=== PATIENT | female | born 1950 | race Caucasian/White ===

== ENCOUNTER 2019-08-17 08:43 | Outpatient (CLI) | payer MEDICARE, OTHER, SELFPAY ==
[2019-08-17 09:09] LABS: Hematocrit 42.1 % (37.0-47.0); Hemoglobin 13.8 g/dL (12.0-15.0); Mean Corpuscular HGB Conc 32.8 g/dl (32-36); Mean Corpuscular Hemoglobin 29.6 pg (26-34); Mean Corpuscular Volume 90.1 fl (80-100); Mean Platelet Volume 10.2 fl (7.4-10.4); Platelet Count Result 217 k/mm3 (150-375); Red Blood Count 4.67 M/mm3 (4.2-5.4); Red Cell Distribution Width 13.8 % (11.5-14.5); White Blood Count 5.7 K/mm3 (4.5-10.0)
[2019-08-17 09:17] LABS: Hemoglobin A1C 6.4 % (<5.7)
[2019-08-17 09:26] LABS: Alanine Aminotransferase 19 U/L (4-35); Albumin Level 4.5 g/dL (3.5-5.1); Alkaline Phosphatase 69 U/L (38-126); Aspartate Amino Transferase 27 U/L (14-36); Bilirubin,Total 0.4 mg/dL (0.2-1.3); Blood Urea Nitrogen 16 mg/dL (7-17); Calcium 9.1 mg/dL (8.4-10.2); Carbon Dioxide 30 mmol/L (22-30); Chloride 102 mmol/L (98-107); Estimated Glomerular Filt Rate > 60; Glucose 122 mg/dL (65-105); Sodium 139 mmol/L (137-145)
[2019-08-17 09:45] LABS: Creatinine Urine 46.4 mg/dL
[2019-08-17 09:57] LABS: MALB Creatinine Ratio < 12.9 mg/g (0-30); Microalbumin Urine Random < 6.0 mg/L (0-16.7)
== END 2019-08-17 08:44 | disposition home or self-care (01) ==
LOC: ANHLAB 08:47
PROVIDERS: PCP Internal Medicine; Visit Provider Internal Medicine
DX: E11.9 Type 2 diabetes mellitus without complications (principal); I10 Essential (primary) hypertension
CPT/HCPCS: 36415; 80053; 82043; 83036; 85027

== ENCOUNTER 2020-07-02 08:47 | Outpatient (CLI) | payer MEDICARE, OTHER, SELFPAY ==
--- NOTE | ~2020-07-02 | DEXA_ITS ---
Bone Density Report Name: Wendi Song Age: 70 Sex: Female Ethnicity: White Date of : 1950 Indication: postmenopausal; prior fracture; hysterectomy; Referring Provider: CHERYL SANDERS Study: Bone densitometry was performed. Exam Date: July 02, 2020 Accession number: [id number] Bone Density: Region BMD T-score Z-score Classification AP Spine (L1, L3) 1.368 3.2 5.3 Normal Femoral Neck (Left) 0.812 -0.3 1.5 Normal Total Hip (Left) 1.013 0.6 2.1 Normal Total Hip Bilateral Avg 1.022 0.7 2.1 Normal Femoral Neck (Right) 0.953 0.9 2.8 Normal Total Hip (Right) 1.030 0.7 2.2 Normal World Health Organization criteria for BMD impression classify patients as: Normal (T-score at or above -1.0), Osteopenia (T-score between -1.0 and -2.5), or Osteoporosis (T-score at or below -2.5). 10-year Fracture Risk: FRAX not reported because: All T-scores for Spine Total, Hip Total, Femoral Neck at or above -1.0 Previous Exams: Region Exam Age BMD T-score BMD Change BMD Change Date g/cm2 vs Baseline vs Previous AP Spine(L1, L3) 07/02/2020 70 1.368 3.2 0.094(7.4%)* 0.032(2.4%)* 05/05/2018 68 1.336 2.9 0.062(4.9%)* 0.062(4.9%)* 12/04/2015 65 1.274 2.4 Total Hip(Left) 07/02/2020 70 1.013 0.6 -0.012(-1.2%) -0.018(-1.7%) 05/05/2018 68 1.030 0.7 0.005(0.5%) 0.005(0.5%) 12/04/2015 65 1.025 0.7 Total Hip(Right) 07/02/2020 70 1.030 0.7 -0.033(-3.1%)* -0.083(-7.5%)* 05/05/2018 68 1.113 1.4 0.051(4.8%)* 0.051(4.8%)* 12/04/2015 65 1.062 1.0 *Denotes significance at 95% confidence level, LSC for AP Spine = 0.022 g/cm2, LSC for Total Hip = 0.027 g/cm2 Clinical Information Provided by Patient: Has had a low trauma fracture Has used the following medications: Vitamin D, Calcium Has the following medical conditions: Hysterectomy Patient maximum height was 65 Menopause Age: 50 Drinks caffeinated beverages Onset of menses at age 11 Number of children 3 Impression: The patient has normal bone mass. The patient has risk factors, including: previous fracture. The BMD for the Total Hip(Right) decreased, changing by -7.5% since the last DXA exam. Discussion: BONE DENSITY IS ABOVE THE MINIMUM DESIRABLE LEVEL AT ALL SKELETAL SITES TESTED. This patient?s bone mineral density is above the minimum desirable level (T-score -1.0 or better) at all sites measured. The patient should follow a healthful lifestyle (good nutri
--- NOTE | ~2020-07-02 | MM_ITS ---
EXAMINATION: MM screening hermelinda BI w jono HISTORY: Screening TECHNIQUE: Craniocaudal and mediolateral oblique 3-D tomosynthesis images were obtained and synthetic 2-D images were generated. CAD analysis was submitted and interpreted. COMPARISON: No prior mammogram is available for comparison at this institution. BREAST PARENCHYMAL COMPOSITION: There are scattered areas of fibroglandular density. FINDINGS: There is no evidence of suspicious mass, calcification, or architectural distortion to sugg est malignancy in either breast. There has been no suspicious interval change. IMPRESSION: 1. No mammographic evidence of malignancy. 2. Recommend routine screening mammography in one year. BI-RADS Category 1: Negative Reviewed, dictated and finalized at location A.
== END 2020-07-02 08:48 | disposition home or self-care (01) ==
LOC: ANHIMG 08:49
PROVIDERS: PCP Internal Medicine; Visit Provider Internal Medicine
DX: Z12.31 Encounter for screening mammogram for malignant neoplasm of breast (principal); Z78.0 Asymptomatic menopausal state
CPT/HCPCS: 77063; 77067; 77080

== ENCOUNTER 2021-07-22 09:57 | Outpatient (CLI) | payer MEDICARE, OTHER, SELFPAY ==
--- NOTE | ~2021-07-22 | MM_ITS ---
EXAMINATION: MM screening hermelinda BI w jono HISTORY: Screening mammogram TECHNIQUE: Craniocaudal and mediolateral oblique 3-D tomosynthesis images were obtained and synthetic 2-D images were generated. CAD analysis was submitted and interpreted. COMPARISON: 07/02/2020 bilateral screening mammogram in right colon [id number] year is for one year and h e is additional BREAST PARENCHYMAL COMPOSITION: There are scattered areas of fibroglandular density. FINDINGS: Stable circumscribed benign-appearing intramammary lymph node outer mid right breast. There is no evidence of suspicious mass, calcification, or architectural distortion to suggest malignancy in either breast. There has been no suspicious interval change. IMPRESSION: 1. No mammographic evidence of malignancy. 2. Recommend routine screening mammography in one year. BI-RADS Category 2: Benign finding(s). Reviewed, dictated and finalized at location A.
== END 2021-07-22 09:58 | disposition home or self-care (01) ==
LOC: ANHIMG 10:02
PROVIDERS: PCP Internal Medicine; Visit Provider Internal Medicine
DX: Z12.31 Encounter for screening mammogram for malignant neoplasm of breast (principal)
CPT/HCPCS: 77063; 77067

== ENCOUNTER 2022-02-16 09:26 | Outpatient (CLI) | payer MEDICARE, OTHER, SELFPAY ==
--- NOTE | ~2022-02-16 | US_ITS ---
Limited Abdominal Sonogram: Real-time sonographic imaging of the right upper quadrant was performed. Clinical History: Gallbladder disease Findings: The liver appears echogenic, with no evidence of mass lesion or bile duct dilatation. Main portal vein demonstrates normal direction of flow. The gallbladder is well distended, and appears no rmal with no evidence of gallstone or wall thickening. The common bile duct measures 7 mm. The visua lized pancreas, aorta, and IVC are unremarkable. Impression: Diffuse fatty infiltration of the liver. Reviewed, dictated and finalized at location M. [employer] PUBL[employer] Impression: Diffuse fatty infiltration of the liver.
== END 2022-02-16 09:27 | disposition home or self-care (01) ==
PROVIDERS: PCP Internal Medicine; Visit Provider Internal Medicine
DX: R10.13 Epigastric pain (principal); K76.0 Fatty (change of) liver, not elsewhere classified
CPT/HCPCS: 76705

== ENCOUNTER 2022-04-23 01:47 | Day surgery (SDC) | payer MEDICARE, OTHER, SELFPAY ==
[2022-04-09 11:03] VITALS: BMI 31.6
[2022-04-23 06:28] VITALS: BP 151/67; PULSE 58; RESP 20; TEMP 36.4; O2SAT 97; BMI 31.6
[2022-04-23 06:37] LABS: Glucose Point of Care 114 mg/dl (65-105)
[2022-04-23] MEDS: LACTATED RINGERS 1,000 ML 150 ML IV CONT (06:37)
--- NOTE | 2022-04-23 07:27 | PM.HPGS ---
History of Present Illness History of Present Illness Consent: Risks, benefits, and alternatives have been discussed and questions answered. Patient agrees to proceed with procedure. Chief complaint: GERD, A-typical chest pain Narrative: Wendi Song is a 72 year old female Presents for EGD. Patient has a history of esophageal web dilated several years ago. At that time placed on omeprazole 20mg p.o. daily. She states recently began to belch more frequently. She denies any dysphagia. Patient denies any heartburn. The dose of omeprazole was increased to b.i.d. but the belching persisted. Upon starting Gas-X this seems to have subsided. Symptoms also improved after brief vacation. Patient has very vague atypical symptoms in her chest not related to eating he she requests an EGD because of history of web in the past. Review of Systems Review of Systems: Review of systems noncontributory. [facility] Past Medical History Medical History (Updated 04/23/22 @ 07:29 by Teodoro Hutchison MD) Arthritis Chronic diarrhea Diabetes mellitus Family hx colonic polyps Gastroesophageal reflux disease History of vaginal delivery x 3 Hyperlipidemia Hypertension Hypovitaminosis D Type 2 diabetes mellitus without complication, without long-term current use of insulin Surgical History Surgical History History of hysterectomy Previous back surgery [place] teeth removed Family History Family History Sibling Family history of mental disorder Family history of alcoholism Family history of attention deficit hyperactivity disorder (ADHD) Father Hypertension Family history of cardiovascular disease, Onset Age: 85 Family history of malignant neoplasm, Onset Age: 85 Family history of hearing loss Carcinoma of colon Family history of heart disease in male family member before age 55 Mother Family history of cardiovascular disease Family history of arthritis, Onset Age: 85 Family history of heart disease in male family member before age 55 Social History Social History Smoking status: Never smoker Second hand tobacco smoke exposure: Yes Alcohol intake: current Drinks per week: 2 Substance use: never Substance use type: does not use Lack of Transportation: No Lack of Food: Never True Current Housing: I Have Housing Concerned About Future Housing: No Difficulty Paying Gas/Electric Bills: No Difficulty Paying for Meds: No Currently Unemployed: No Education: Master's Degree or Higher Difficulty w/ Childcare or Family Care: No Living arrangements: alone Meds Home Medications and Allergies Home Medications Medication Instructions Recorded Confirmed Type calcium carbonate 500 mg calcium 500 mg PO DAILY 08/17/19 04/09/22 History (1,250 mg) tablet cholecalciferol (vitamin D3) 125 125 mcg PO DAILY 08/17/19 04/09/22 History mcg (5,000 unit) capsule loratadine 10 mg tablet (Claritin) 10 mg PO DAILY 08/17/19 04/09/22 History metformin 500 mg tablet 500 mg PO BID #360 tabs 01/26/22 04/09/22 Rx omeprazole 20 mg capsule,delayed 40 mg PO DAILY #180 caps 01/26/22 04/09/22 Rx release rosuvastatin 20 mg tablet See Rx Instructions .Route 01/26/22 04/09/22 Rx .COMPLEX #90 tabs amlodipine 10 mg tablet See Rx Instructions .Route 03/19/22 04/09/22 Rx .COMPLEX #90 tabs losartan 25 mg tablet See Rx Instructions .Route 03/22/22 04/09/22 Rx .COMPLEX #90 tabs Allergies Allergy/AdvReac Type Severity Reaction Status Date / Time codeine Allergy Unknown Vomiting Verified 04/23/22 06:23 Vital Signs Vital Signs - 24 hr 04/23/22 06:28 Temperature 97.6 F Pulse Rate 58 L Respiratory Rate 20 Blood Pressure 151/67 H Pulse Oximetry 97 Oxygen Delivery Room Air Exam Narrative: Physical exam reveals patient to
[2022-04-23 07:42] VITALS: BP 116/55; PULSE 45; RESP 14; O2SAT 99
--- NOTE | 2022-04-23 07:42 | WPDANESEPPF ---
Anes - Initial Pre Proc Eval Procedure: Operation Date: 04/23/22 07:30 Proposed Procedures p Esophagogastroduodenoscopy - Teodoro Hutchison MD Date/Time: 04/23/22 07:42 Surgeon: Teodoro Hutchison MD Pre Op Diagnosis: GERD, A-typical chest pain Patient Data Age: 72 Gender: F Height: 1.65 m Weight: 86.2 kg Last Vital Signs Temp 97.6 F 04/23/22 06:28 Pulse 58 L 04/23/22 06:28 Resp 20 04/23/22 06:28 BP 151/67 H 04/23/22 06:28 Pulse Ox 97 04/23/22 06:28 O2 Del Method Room Air 04/23/22 06:28 Allergies Allergy/AdvReac Type Severity Reaction Status Date / Time codeine Allergy Unknown Vomiting Verified 04/23/22 06:23 Home Medications Medication Instructions Recorded Confirmed Type calcium carbonate 500 mg calcium 500 mg PO DAILY 08/17/19 04/09/22 History (1,250 mg) tablet cholecalciferol (vitamin D3) 125 125 mcg PO DAILY 08/17/19 04/09/22 History mcg (5,000 unit) capsule loratadine 10 mg tablet (Claritin) 10 mg PO DAILY 08/17/19 04/09/22 History metformin 500 mg tablet 500 mg PO BID #360 tabs 01/26/22 04/09/22 Rx omeprazole 20 mg capsule,delayed 40 mg PO DAILY #180 caps 01/26/22 04/09/22 Rx release rosuvastatin 20 mg tablet See Rx Instructions .Route 01/26/22 04/09/22 Rx .COMPLEX #90 tabs amlodipine 10 mg tablet See Rx Instructions .Route 03/19/22 04/09/22 Rx .COMPLEX #90 tabs losartan 25 mg tablet See Rx Instructions .Route 03/22/22 04/09/22 Rx .COMPLEX #90 tabs Laboratory Tests 04/23/22 06:34 POC Capillary Glucose 114 mg/dl H mg/dl (65-105) Patient hx anesthesia problems: none Family hx anesthesia problems: none Results Review: All pre-operative results and documents have been reviewed as part of the pre-operative evaluation. [facility] Past Medical History Medical History (Updated 04/23/22 @ 07:29 by Teodoro Hutchison MD) Arthritis Chronic diarrhea Diabetes mellitus Family hx colonic polyps Gastroesophageal reflux disease History of vaginal delivery x 3 Hyperlipidemia Hypertension Hypovitaminosis D Type 2 diabetes mellitus without complication, without long-term current use of insulin Surgical History Surgical History History of hysterectomy Previous back surgery [place] teeth removed Family History Family History Sibling Family history of mental disorder Family history of alcoholism Family history of attention deficit hyperactivity disorder (ADHD) Father Hypertension Family history of cardiovascular disease, Onset Age: 85 Family history of malignant neoplasm, Onset Age: 85 Family history of hearing loss Carcinoma of colon Family history of heart disease in male family member before age 55 Mother Family history of cardiovascular disease Family history of arthritis, Onset Age: 85 Family history of heart disease in male family member before age 55 Social History Social History Smoking status: Never smoker Second hand tobacco smoke exposure: Yes Alcohol intake: current Drinks per week: 2 Substance use: never Substance use type: does not use Lack of Transportation: No Lack of Food: Never True Current Housing: I Have Housing Concerned About Future Housing: No Difficulty Paying Gas/Electric Bills: No Difficulty Paying for Meds: No Currently Unemployed: No Education: Master's Degree or Higher Difficulty w/ Childcare or Family Care: No Living arrangements: alone Anes - Eval Final PreProcedure Day of Procedure 04/23/22 07:42 Patient weight: normal Heart: regular rate and rhythm Lungs: clear to auscultation Airway: Mallampati scale class II Neurological: alert and oriented Last oral intake: >/= 8 hours ASA classification: III Emergent: no Anesthetic plan: proceed Anesthesia type and monitoring: general GIVS an
[2022-04-23 07:52] VITALS: BP 118/64; PULSE 44; RESP 17; O2SAT 99
[2022-04-23 08:02] VITALS: BP 125/72; PULSE 48; RESP 17; O2SAT 99
== END 2022-04-23 08:16 | disposition home or self-care (01) ==
PROVIDERS: PCP Internal Medicine; Visit Provider Internal Medicine Gastroenterology
PROC: 0DJ08ZZ Inspection of Upper Intestinal Tract, Via Natural or Artificial Opening Endoscopic (ICD-10-PCS; CPT 43235; principal; 2022-04-23 07:30)
DX: K21.9 Gastro-esophageal reflux disease without esophagitis (principal); E11.9 Type 2 diabetes mellitus without complications; I10 Essential (primary) hypertension; E55.9 Vitamin D deficiency, unspecified; E78.5 Hyperlipidemia, unspecified
CPT/HCPCS: 43239; 82948; 87081; J2704; J7120

== ENCOUNTER 2023-07-28 23:56 | Emergency (ER) | payer MEDICARE, OTHER, SELFPAY ==
--- NOTE | ~2023-07-28 | CT_ITS ---
CT of the Abdomen and Pelvis: Indication: Abdominal pain, rectal bleeding Technique: 2.5 mm axial scans were obtained through the abdomen and pelvis following intravenous adm inistration of 100 cc of Omnipaque 350. Dose reduction technique was used on this scan by utilizing a utomated exposure control and iterative reconstruction technique. The dose-length product (DLP) was 7 34.77 mGy-cm. Findings: Scans through the lung bases are unremarkable. The liver, spleen, pancreas, gallbladder, adrenals and left kidney are within normal limits. 1 cm rig ht renal mass is of mildly increased density as compared to the expected simple cyst, possibly a smal l solid lesion. No evidence of aortic aneurysm. No lymphadenopathy. No bowel obstruction. Possible wall thickening of the descending colon versus underdistention. No abs cess or free air. Images through the pelvis were performed. Urinary bladder unremarkable. Status post hysterectomy. No pelvic mass seen. No ascites. Impression: Possible wall thickening of the descending colon versus underdistention. Correlate for infectious/inf lammatory colitis. 1 cm possible solid lesion versus mildly complex/hyperdense cyst in the right kidney. Follow-up nonem ergent pre and postcontrast CT or MR should be considered to better evaluate for small solid renal le cecy. Reviewed, dictated and finalized at location . Impression: Possible wall thickening of the descending colon versus underdistention. Correl ate for infectious/inflammatory colitis. 1 cm possible solid lesion versus mildly complex/hyperdense cyst in the right k idney. Follow-up nonemergent pre and postcontrast CT or MR should be considered to better evaluate for small solid renal lesion.
[2023-07-29 00:08] VITALS: BP 148/86; PULSE 75; RESP 16; O2SAT 100
--- NOTE | 2023-07-29 00:58 | ED.GENADULT ---
HPI - General Adult General Chief complaint: GI Bleed <YOEL Otero Last Filed: 07/29/23 03:40> Stated complaint: rectal bleeding <YOEL Otero Last Filed: 07/29/23 03:40> Time Seen by Provider: 07/29/23 00:48 <YOEL Otero Last Filed: 07/29/23 03:40> Source: patient <YOEL Otero Last Filed: 07/29/23 03:40> Mode of arrival: ambulatory <YOEL Otero Last Filed: 07/29/23 03:40> Limitations: no limitations <YOEL Otero Last Filed: 07/29/23 03:40> History of Present Illness HPI narrative: This is a 73-year-old female with PMH of T2 dm, GERD, HLD, chronic diarrhea who presents to the ED for chief complaint of bright red blood per rectum that started around 16 30 this afternoon. Patient reports that she had the urge to use the toilet but when she tried to pass a bowel movement there was only bright red blood in the toilet bowl. No history of hemorrhoids so to speak. She has never had bleeding like this before. She endorses some abdominal cramping prior to the bowel movements. She did have 1 bowel movement today that turned into diarrhea. Denies nausea, vomiting, fevers, chills, urinary symptoms. Denies melena or dark tarry stools <YOEL Otero Last Filed: 07/29/23 03:40> Related Data Home medications: Home Medications Medication Instructions Recorded Confirmed calcium carbonate 500 mg PO DAILY 08/17/19 05/24/23 cholecalciferol (vitamin D3) 125 125 mcg PO DAILY 08/17/19 05/24/23 mcg (5,000 unit) capsule loratadine 10 mg tablet (Claritin) 10 mg PO DAILY 08/17/19 05/24/23 <YOEL Otero Last Filed: 07/29/23 03:40> Allergies/adverse reactions: Allergies Allergy/AdvReac Type Severity Reaction Status Date / Time codeine Allergy Unknown Vomiting Verified 05/24/23 08:27 <Sean Cook PA-C - Last Filed: 07/29/23 03:40> Review of Systems Review of Systems: All systems as dictated in HPI <Sean Cook PA-C - Last Filed: 07/29/23 03:40> [facility] Past Medical History Medical History: Medical History Arthritis Chronic diarrhea Diabetes mellitus Family hx colonic polyps Gastroesophageal reflux disease History of vaginal delivery x 3 Hyperlipidemia Hypertension Hypovitaminosis D Type 2 diabetes mellitus without complication, without long-term current use of insulin <YOEL Otero Last Filed: 07/29/23 03:40> Surgical History Surgical History: Surgical History History of hysterectomy Previous back surgery [place] teeth removed <Sean Cook PA-C - Last Filed: 07/29/23 03:40> Family History Family History: Family History Sibling Family history of mental disorder Family history of alcoholism Family history of attention deficit hyperactivity disorder (ADHD) Father Hypertension Family history of cardiovascular disease, Onset Age: 85 Family history of malignant neoplasm, Onset Age: 85 Family history of hearing loss Carcinoma of colon Family history of heart disease in male family member before age 55 Mother Family history of cardiovascular disease Family history of arthritis, Onset Age: 85 Family history of heart disease in male family member before age 55 <Sean Cook PA-C - Last Filed: 07/29/23 03:40> Social History Social History: Social History Smoking status: Never smoker Second hand tobacco smoke exposure: Yes Alcohol intake: current Drinks per week: 3 Substance use: never Substance use type: does not use Lack of Transportation: No Lack of Food: Never True Current Housing: I Have Housing Concerned About Future Housing: No Difficulty Paying Gas/Electric Bills: No Difficulty Paying for Meds:
[2023-07-29 01:13] LABS: Basophils Absolute Auto 0.1 K/mm3 (0.0-0.1); Basophils Percent Auto 0.5 % (0.2-1.2); Eosinophils Absolute Auto 0.1 K/mm3 (0-0.3); Eosinophils Percent Auto 1.2 % (0-4.4); Hematocrit 45.1 % (37.0-47.0); Hemoglobin 14.6 g/dL (12.0-15.0); Immature Granulocyte Absolute 0.04 K/mm3 (0.00-0.031); Immature Granulocyte Percent A 0.4 % (0-0.5); Lymphocytes Absolute Auto 1.58 K/mm3 (0.9-3.2); Lymphocytes Percent Auto 14.2 % (18.3-44.2); Mean Corpuscular HGB Conc 32.4 g/dl (32-36); Mean Corpuscular Hemoglobin 29.4 pg (26-34); Mean Corpuscular Volume 90.9 fl (80-100); Mean Platelet Volume 9.8 fl (7.4-10.4); Monocytes Absolute Auto 0.7 K/mm3 (0.1-0.6); Monocytes Percent Auto 6.6 % (2.6-8.5); Neutrophils Absolute Auto 8.6 K/mm3 (1.3-6.7); Neutrophils Percent Auto 77.1 % (45.5-73.1); Platelet Count Result 265 k/mm3 (150-375); Red Blood Count 4.96 M/mm3 (4.2-5.4); White Blood Count 11.1 K/mm3 (4.5-10.0)
[2023-07-29 01:26] LABS: INR 0.9; Partial Thromboplastin Time 29.4 Seconds (22.3-36.8)
[2023-07-29 01:29] LABS: Alanine Aminotransferase 22 U/L (6-35); Albumin Level 5.1 g/dL (3.5-5.1); Alkaline Phosphatase 85 U/L (38-126); Anion Gap 8 mmol/L (4-12); Aspartate Amino Transferase 28 U/L (14-36); Bilirubin,Total 0.5 mg/dL (0.2-1.3); Blood Urea Nitrogen 20 mg/dL (7-17); Calcium 9.9 mg/dL (8.4-10.2); Carbon Dioxide 30 mmol/L (22-30); Chloride 102 mmol/L (98-107); Estimated CRCL calculation 52 ml/min; Estimated Glomerular Filt Rate > 60; Glucose 143 mg/dL (65-110); Lactic Acid Reflex 0.8 mmol/L (0.7-2.0); Lipase 64 U/L (23-300); Potassium 3.8 mmol/L (3.4-5.0); Sodium 140 mmol/L (137-145)
[2023-07-29 04:31] VITALS: BP 140/78; PULSE 72; RESP 15; O2SAT 100
== END 2023-07-29 04:32 | disposition left against medical advice (07) ==
PROVIDERS: Physician Assistant; Emergency Provider Emergency Medicine; PCP Nurse Practitioner
DX: K62.5 Hemorrhage of anus and rectum (principal); R10.9 Unspecified abdominal pain; I10 Essential (primary) hypertension; E78.5 Hyperlipidemia, unspecified; E11.9 Type 2 diabetes mellitus without complications; E55.9 Vitamin D deficiency, unspecified; M19.90 Unspecified osteoarthritis, unspecified site; K52.9 Noninfective gastroenteritis and colitis, unspecified; K21.9 Gastro-esophageal reflux disease without esophagitis; Z90.710 Acquired absence of both cervix and uterus; Z79.84 Long term (current) use of oral hypoglycemic drugs; Z79.899 Other long term (current) drug therapy
CPT/HCPCS: 36415; 74177; 80053; 83605; 83690; 85025; 85610; 85730; 99284; Q9967

== ENCOUNTER 2023-07-29 09:25 | Emergency (ER) | payer MEDICARE, OTHER, SELFPAY ==
[2023-07-29 09:33] VITALS: BP 163/78; PULSE 70; RESP 16; TEMP 36.7; O2SAT 100
[2023-07-29 10:45] VITALS: BP 154/80; PULSE 82; RESP 16; TEMP 36.6; O2SAT 100
[2023-07-29 11:45] VITALS: BP 146/78; PULSE 78; RESP 16; TEMP 36.6; O2SAT 98
--- NOTE | 2023-07-29 11:51 | ED.GIBLEED ---
HPI - GI Bleed General Chief complaint: GI Bleed Stated complaint: rectal bleeding Time Seen by Provider: 07/29/23 10:34 Source: patient Mode of arrival: ambulatory Limitations: no limitations History of Present Illness HPI Narrative: 73-year-old with a history of diabetes, hypertension, hyperlipidemia, GERD here with a complaint of rectal bleeding since yesterday. Patient states that she has occasional cramping followed by bleeding. She was seen yesterday in the ER however left AMA without the CT report. She denies having any lightheadedness or dizziness. Pain mostly upper abdominal. No history of fever or chills. Denies any recent use of antibiotic. She states that she is scheduled to see GI in the next few weeks. complaint: blood streaked stool Onset (ago): day(s) (1) Pain Consistency: intermittent Severity: mild Relieving factors: none Exacerbating factors: none Associated symptoms: denies other symptoms Related Data Home Medications Medication Instructions Recorded Confirmed calcium carbonate 500 mg PO DAILY 08/17/19 05/24/23 cholecalciferol (vitamin D3) 125 125 mcg PO DAILY 08/17/19 05/24/23 mcg (5,000 unit) capsule loratadine 10 mg tablet (Claritin) 10 mg PO DAILY 08/17/19 05/24/23 Allergies Allergy/AdvReac Type Severity Reaction Status Date / Time codeine Allergy Unknown Vomiting Verified 05/24/23 08:27 Review of Systems Review of Systems: All systems reviewed & are unremarkable except as noted in HPI and below Constitutional: Constitutional: Reports no additional constitutional complaints Eyes: Eyes: Reports no additional eye complaints ENT: Reports system reviewed and no additional complaints, except as documented Cardiovascular: Cardiovascular: Reports no additional cardiovascular complaints Respiratory: Respiratory: Reports no additional respiratory complaints Gastrointestinal: Gastrointestinal: Reports as per HPI Genitourinary: Genitourinary: Reports no additional female genitourinary complaints Musculoskeletal: Musculoskeletal: Reports no additional musculoskeletal complaints [facility] Past Medical History Medical History Arthritis Chronic diarrhea Diabetes mellitus Family hx colonic polyps Gastroesophageal reflux disease History of vaginal delivery x 3 Hyperlipidemia Hypertension Hypovitaminosis D Type 2 diabetes mellitus without complication, without long-term current use of insulin Surgical History Surgical History History of hysterectomy Previous back surgery [place] teeth removed Family History Family History Sibling Family history of mental disorder Family history of alcoholism Family history of attention deficit hyperactivity disorder (ADHD) Father Hypertension Family history of cardiovascular disease, Onset Age: 85 Family history of malignant neoplasm, Onset Age: 85 Family history of hearing loss Carcinoma of colon Family history of heart disease in male family member before age 55 Mother Family history of cardiovascular disease Family history of arthritis, Onset Age: 85 Family history of heart disease in male family member before age 55 Social History Social History Smoking status: Never smoker Second hand tobacco smoke exposure: Yes Alcohol intake: current Drinks per week: 3 Substance use: never Substance use type: does not use Lack of Transportation: No Lack of Food: Never True Current Housing: I Have Housing Concerned About Future Housing: No Difficulty Paying Gas/Electric Bills: No Difficulty Paying for Meds: No Currently Unemployed: No Education: Master's Degree or Higher Difficulty w/ Childcare or Family Care: No Living arrangements: alone Exam Narrative: GENERAL: Well-appearing, well-
== END 2023-07-29 12:22 | disposition home or self-care (01) ==
PROVIDERS: Emergency Provider Family Medicine; PCP Nurse Practitioner
DX: K62.5 Hemorrhage of anus and rectum (principal); K52.9 Noninfective gastroenteritis and colitis, unspecified; N28.89 Other specified disorders of kidney and ureter; I10 Essential (primary) hypertension; E11.9 Type 2 diabetes mellitus without complications; E78.5 Hyperlipidemia, unspecified; K21.9 Gastro-esophageal reflux disease without esophagitis; E55.9 Vitamin D deficiency, unspecified
CPT/HCPCS: 99283

== ENCOUNTER 2023-09-28 06:47 | Day surgery (SDC) | payer MEDICARE, OTHER, SELFPAY ==
[2023-08-23 07:10] VITALS: BMI 33.0
[2023-09-19 08:59] VITALS: BMI 32.6
--- NOTE | 2023-09-27 13:05 | WPDANESEPPF ---
Anes - Initial Pre Proc Eval Procedure: Operation Date: 09/28/23 08:30 Proposed Procedures p Diagnostic Colonoscopy - Teodoro Hutchison MD Date/Time: 09/27/23 13:05 Surgeon: Teodoro Hutchison MD Pre Op Diagnosis: Noninfective Gastroenteritis and Colitis Patient Data Age: 73 Gender: F Height: 1.63 m Weight: 86.3 kg Allergies Allergy/AdvReac Type Severity Reaction Status Date / Time codeine Allergy Unknown Vomiting Verified 09/28/23 07:06 Home Medications Medication Instructions Recorded Confirmed Type calcium carbonate 500 mg PO DAILY 08/17/19 09/28/23 History cholecalciferol (vitamin D3) 125 125 mcg PO DAILY 08/17/19 09/28/23 History mcg (5,000 unit) capsule loratadine 10 mg tablet (Claritin) 10 mg PO DAILY 08/17/19 09/28/23 History metformin 500 mg tablet 500 mg PO BID #360 tabs 05/24/23 09/28/23 Rx amlodipine 10 mg tablet 10 mg PO DAILY 09/19/23 09/28/23 History losartan 25 mg tablet 25 mg PO DAILY 09/19/23 09/28/23 History omeprazole 20 mg capsule,delayed 20 mg PO DAILY 09/19/23 09/28/23 History release rosuvastatin 20 mg tablet 20 mg PO DAILY 09/19/23 09/28/23 History Patient hx anesthesia problems: none Family hx anesthesia problems: none Results Review: All pre-operative results and documents have been reviewed as part of the pre-operative evaluation. [facility] Past Medical History Medical History Arthritis Chronic diarrhea Diabetes mellitus Family hx colonic polyps Gastroesophageal reflux disease History of vaginal delivery x 3 Hyperlipidemia Hypertension Hypovitaminosis D Type 2 diabetes mellitus without complication, without long-term current use of insulin Surgical History Surgical History History of hysterectomy Previous back surgery [place] teeth removed Family History Family History Sibling Family history of mental disorder Family history of alcoholism Family history of attention deficit hyperactivity disorder (ADHD) Father Hypertension Family history of cardiovascular disease, Onset Age: 85 Family history of malignant neoplasm, Onset Age: 85 Family history of hearing loss Carcinoma of colon Family history of heart disease in male family member before age 55 Mother Family history of cardiovascular disease Family history of arthritis, Onset Age: 85 Family history of heart disease in male family member before age 55 Social History Social History Smoking status: Never smoker Second hand tobacco smoke exposure: Yes Alcohol intake: current Drinks per week: 7 Alcohol use details: wine Substance use: never Substance use type: does not use Lack of Transportation: No Lack of Food: Never True Current Housing: I Have Housing Concerned About Future Housing: No Difficulty Paying Gas/Electric Bills: No Difficulty Paying for Meds: No Currently Unemployed: No Education: Master's Degree or Higher Difficulty w/ Childcare or Family Care: No Living arrangements: with family Spiritual care concerns: No Anes - Eval Final PreProcedure Day of Procedure 09/27/23 13:05 Patient weight: obese Heart: regular rate and rhythm Lungs: clear to auscultation Airway: Mallampati scale class II Neurological: alert and oriented Last oral intake: >/= 8 hours ASA classification: III Emergent: no Anesthetic plan: proceed Anesthesia type and monitoring: general GIVS and standard monitoring Results Review: All pre-operative results and documents have been reviewed as part of the pre-operative evaluation. Informed Consent: The patient's anesthetic plan and its attendant risks and benefits were discussed with the patient/family/POA. Questions were solicited and answers provided to the satisfaction of the patient/family/POA.
[2023-09-28 07:12] VITALS: BP 135/87; PULSE 59; RESP 16; TEMP 36.1; O2SAT 96; BMI 32.2
--- NOTE | 2023-09-28 07:24 | PM.HPGS ---
History of Present Illness History of Present Illness Consent: Risks, benefits, and alternatives have been discussed and questions answered. Patient agrees to proceed with procedure. Chief complaint: Noninfective Gastroenteritis and Colitis Narrative: Wendi Song is a 73 year old female presents for colonoscopy. Patient has a history of rectal bleeding passing mucus is blood in his stool after bicycle riding. This occurred in June. Symptoms lasted for 1 day and subsequently resolved. She had minimal pain. She had been to the emergency room a CT scan suggested colitis at the time. Patient reports having sickle ride shortly before this episode. Patient denies any other prior history of colon issue. In the past has had colon polyps. Family history can not noncontributory. Review of Systems Review of Systems: All systems reviewed & are unremarkable except as noted in HPI and below PMFSH Past Medical History Medical History Arthritis Chronic diarrhea Diabetes mellitus Family hx colonic polyps Gastroesophageal reflux disease History of vaginal delivery x 3 Hyperlipidemia Hypertension Hypovitaminosis D Type 2 diabetes mellitus without complication, without long-term current use of insulin Surgical History Surgical History History of hysterectomy Previous back surgery [place] teeth removed Family History Family History Sibling Family history of mental disorder Family history of alcoholism Family history of attention deficit hyperactivity disorder (ADHD) Father Hypertension Family history of cardiovascular disease, Onset Age: 85 Family history of malignant neoplasm, Onset Age: 85 Family history of hearing loss Carcinoma of colon Family history of heart disease in male family member before age 55 Mother Family history of cardiovascular disease Family history of arthritis, Onset Age: 85 Family history of heart disease in male family member before age 55 Social History Social History Smoking status: Never smoker Second hand tobacco smoke exposure: Yes Alcohol intake: current Drinks per week: 7 Alcohol use details: wine Substance use: never Substance use type: does not use Lack of Transportation: No Lack of Food: Never True Current Housing: I Have Housing Concerned About Future Housing: No Difficulty Paying Gas/Electric Bills: No Difficulty Paying for Meds: No Currently Unemployed: No Education: Master's Degree or Higher Difficulty w/ Childcare or Family Care: No Living arrangements: with family Spiritual care concerns: No Meds Home Medications and Allergies Home Medications Medication Instructions Recorded Confirmed Type calcium carbonate 500 mg PO DAILY 08/17/19 09/28/23 History cholecalciferol (vitamin D3) 125 125 mcg PO DAILY 08/17/19 09/28/23 History mcg (5,000 unit) capsule loratadine 10 mg tablet (Claritin) 10 mg PO DAILY 08/17/19 09/28/23 History metformin 500 mg tablet 500 mg PO BID #360 tabs 05/24/23 09/28/23 Rx amlodipine 10 mg tablet 10 mg PO DAILY 09/19/23 09/28/23 History losartan 25 mg tablet 25 mg PO DAILY 09/19/23 09/28/23 History omeprazole 20 mg capsule,delayed 20 mg PO DAILY 09/19/23 09/28/23 History release rosuvastatin 20 mg tablet 20 mg PO DAILY 09/19/23 09/28/23 History Allergies Allergy/AdvReac Type Severity Reaction Status Date / Time codeine Allergy Unknown Vomiting Verified 09/28/23 07:06 Vital Signs Vital Signs - 24 hr 09/28/23 07:12 Temperature 97 F L Pulse Rate 59 L Respiratory Rate 16 Blood Pressure 135/87 Pulse Oximetry 96 Oxygen Delivery Room Air Exam Narrative: Physical exam reveals patient to be alert. Signs stable. HEENT exam is unremarkable. Patient is anicteric. Lungs are cl
[2023-09-28 07:32] LABS: Glucose Point of Care 103 mg/dl (65-105)
[2023-09-28] MEDS: LACTATED RINGERS 1,000 ML 150 ML IV CONT (07:32)
[2023-09-28 08:46] VITALS: BP 133/71; PULSE 57; RESP 16; O2SAT 97
[2023-09-28 08:56] VITALS: BP 137/71; PULSE 55; RESP 16; O2SAT 98
[2023-09-28 09:06] VITALS: BP 149/83; PULSE 49; RESP 16; O2SAT 99
--- NOTE | 2023-09-28 09:30 | WPDANESPN ---
Anes - Prog Note Post-Op Date/Time: 09/28/23 09:30 Cardiovascular status: normal Respiratory status: normal Airway patency: baseline Mental status: baseline Post-Op hydration status: normal Vital Signs: Last Vital Signs Temp 36.1 C L 09/28/23 07:12 Pulse 49 L 09/28/23 09:06 Resp 16 09/28/23 09:06 BP 149/83 H 09/28/23 09:06 Pulse Ox 99 09/28/23 09:06 O2 Del Method Room Air 09/28/23 09:06 Pain Score (VAS): 0 I/O: Intake & Output 09/27/23 09/28/23 09/28/23 23:59 07:59 15:59 Intake Total 700 Balance 700 09/28/23 07:29 POC Capillary Glucose 103 Post-procedural complaints: none Patient Feedback: Patient satisfied with anesthetic care. Other Findings: Patient vital signs back to baseline. Patient denies nausea and vomiting. Patient's pain under control. Patient OK for discharge.
== END 2023-09-28 09:20 | disposition home or self-care (01) ==
PROVIDERS: PCP Nurse Practitioner; Visit Provider Internal Medicine Gastroenterology
PROC: 0DJD8ZZ Inspection of Lower Intestinal Tract, Via Natural or Artificial Opening Endoscopic (ICD-10-PCS; CPT 45378; principal; 2023-09-28 08:30)
DX: Z86.010 Personal history of colon polyps (principal); D12.6 Benign neoplasm of colon, unspecified; K64.8 Other hemorrhoids
CPT/HCPCS: 45385

== ENCOUNTER 2023-09-28 07:00 | Outpatient (NON) | payer MEDICARE, OTHER, SELFPAY | END 2023-09-28 07:01 | disposition home or self-care (01) | LOC: ANHLAB 09-29 09:57 | PROVIDERS: PCP Nurse Practitioner; Visit Provider Internal Medicine Gastroenterology | DX: K52.9 Noninfective gastroenteritis and colitis, unspecified (principal); K63.5 Polyp of colon | CPT/HCPCS: 88305 ==

== ENCOUNTER 2023-11-10 14:38 | Outpatient (CLI) | payer MEDICARE, OTHER, SELFPAY ==
--- NOTE | ~2023-11-10 | MM_ITS ---
EXAMINATION: MM screening hermelinda BI w jono HISTORY: Screening mammogram TECHNIQUE: Craniocaudal and mediolateral oblique 3-D tomosynthesis images were obtained and synthetic 2-D images were generated. CAD analysis was submitted and interpreted. COMPARISON: 07/22/2021, 07/02/2020 BREAST PARENCHYMAL COMPOSITION:Not Dense. There are scattered areas of fibroglandular density. FINDINGS: No suspicious mass, calcification, or architectural distortion are identified in either kaci ast to suggest malignancy. There has been no suspicious interval change. IMPRESSION: No mammographic evidence of malignancy. Recommend routine screening mammography in one year. BI-RADS Category 1: Negative Reviewed, dictated and finalized at location .
== END 2023-11-10 14:39 | disposition home or self-care (01) ==
PROVIDERS: PCP Nurse Practitioner; Visit Provider Nurse Practitioner
DX: Z12.31 Encounter for screening mammogram for malignant neoplasm of breast (principal)
CPT/HCPCS: 77063; 77067

== ENCOUNTER 2024-12-12 14:54 | Outpatient (CLI) | payer MEDICARE, OTHER, SELFPAY ==
--- OUTSIDE RECORDS SUMMARY | 2009-12-18 19:00 | XMS_ITS | Continuity of Care Document ---
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 Name Role Phone [facility] Unavailable Unavail able Misti Kramer Unavailable Unavailable Procedures Procedure Date Frames Deluxe SV Poly Carb Sph +/- 7.12 To +/- 20 D Oc Tint Photochromatic, Polycarb 0 Polycarb Lens Per Lens Anti-reflective Coating Eye Exam & Treatment Refraction Advance Directives Directive Yes / No Effective Date File Name No Information Encounters Encounter Description Practice Location Reason(s) For Visit Diagnoses Date Provider Providers Copied on Encounter [facility], [address] [place] [address] [address], [place], [place], [address], [place] tel:[phone] SEC [facility] No Information 2-201 0 [facility] . [address] [facility] [address], [place], [address], [place]. tel:[phone] Referring Provider: Teodoro Restrepo OD A, [address], [place], [address]. tel:[phone] sulting Provider: Misti Kramer, [address] [place] [address], [address]. tel:[phone] [facility], [address] [place] [address] [address], [place], [place], [address], [place] tel:[phone] [facility] No Information 1-201 0 Restrepo OD Teodoro. [address], [place], [address], [place]. tel:[phone] Family History Family Member Type Diagnosis Age At Onset No Information Payers Payer name Insurance type Covered democrat ID Authordorothya jesus(s) [employer] Plan CI [id number] Social History Type Description Quantity Date Captured Comments Sex Female Smoking Status No Information Chief Complaint And Reason For Visit No Information Reason For Referral Reason For Referral No Information History Of Present Illness Encounter Date Complaint History Of Prese nt Illness No Information Functional Status Date Functional Assessmen t No Information Instructions Date Instruction Additional Infor mation No Information Assessments Type Assessment Date No Information Patient Care Teams Name Effective Dates (start - stop) Status Members No Information
--- OUTSIDE RECORDS SUMMARY | 2012-10-24 06:55 | XMS_ITS | Continuity of Care Document ---
Author Organization [facility] Address [address] [place] [address] Phone Care Team Providers Care Grade Recorder Name Role Phone Cely Walker Unavailable Unavailable Allergies, Adverse Reactions, Alerts Substance Reaction Status Criticality codeine Other Active No Information Medications Medication Instructions Dosage Effective Dates (start - stop) Status Comments lisinopril 10 mg tablet take 1/2 tablet by mouth daily - Active Crestor 10 mg tablet take 1 tablet by or al route every day 10 MG - Active Advance Directives Directive Yes / No Effective Date File Name No Information Encounters Encounter Description Practice Location Reason(s) For Visit Diagnoses Date Provider Providers Copied on Encounter [facility], [address], [place], [place], [address] , [place] tel: [phone] [facility] No Information [address] , [address], [place], [place], [address], [place]. tel:[phone] [facility], [address], [place], [place], [address] , [place] tel: [phone] [facility] No Information [address] [place], [place], [address], [place]. tel:[phone] [facility], [address], [place], [place], [address] , [place] tel: [phone] [facility] ALLERGIC RHINITIS NOSBENIGN HYPERTENSIONGENERA L OSTEOARTHROSISHYPE RLIPIDEMIA NEC/NOSFatigueRout ine general medical examination at health id 3 No Information [facility], [address], [place], [place], [address] , [place] tel:[phone] [facility] Allergic rhinitis, cause unspecifiedOsteoar throsis, generalized, involving unspecified siteLumbago Oct- 1 No Information [facility], [address], [place], [place], [address] , [place] tel: [phone] [facility] VACCINATION FOR DTP-DTAP 0 No Information [facility], [address], [place], [place], [address] , [place] tel: [phone] [facility] SCREEN MAL NEOP-RECTUMURIN TRACT INFECTION NOS [address], [address], [place], [place], [address], [place]. tel:[phone] [facility], [address], [place], [place], [address] , [place] tel: [phone] [facility] BENIGN HYPERTENSIONHYPERL IPIDEMIA NEC/NOS 0 Conversion Doctor. [facility] [address] [facility], [place], [address], [place]. [facility], [address], [place], [place], [address] , [place] tel:[phone] [facility] MALAISE AND FATIGUE NECIMPACTED CERUMENGENERAL OSTEOARTHROSISBEN HY KID W CR KID I-IVROUTINE MEDICAL EXAM 0 No Information [facility], [address], [place], [place], [address] , [place] tel: [phone] [facility] LONG-TERM USE MEDS NEC Oct-2 [address], [address], [place], [place], [address], [place]. tel:[phone] [facility], [address], [place], [place], [address] , [place] tel: [phone] [facility] HERPES ZOSTER NOS Oct-2 3200 8 No Information [facility], [address], [place], [place], [address] , [place] tel:[phone] [facility] SHORTNESS OF BREATHCHEST PAIN NOSCHRO KIDNEY DIS STAGE II 8 No Information [facility], [address], [place], [place], [address] , tel: [phone] [facility] SMELL & TASTE DISTURB [address] , [address], [place], [place], [address], [place]. tel:[phone] [facility], [address], [place], [place], [address] , tel: [phone] [facility] ALLERGIC RHINITIS NOS 7 No Information Family History Family Member Type Diagnosis Age At Onset Father Problem (finding) hypertension Mother Problem (finding) hypertension Mother Problem (finding) coronary arterioscleros is Father Problem (finding) coronary arterioscleros is Father Problem (finding) cancer of colon Immunizations Vaccine Date Status Comments 15086 - Tetanus_Diptheria_Pertussis_Tdap administered Source: Source Unspecified Payers Payer name Insurance type Covered democrat ID Miles lee(s) [facility] INACTIVE [facility] [id number] Social History Type Description Quantity Date Captured [...]
--- NOTE | ~2024-12-12 | MM_ITS ---
EXAMINATION: MM screening hermelinda BI w jono HISTORY: Screening TECHNIQUE: Craniocaudal and mediolateral oblique 3-D tomosynthesis images were obtained and synthetic 2-D images were generated. CAD analysis was submitted and interpreted. COMPARISON: 07/22/2021 BREAST PARENCHYMAL COMPOSITION: There are scattered areas of fibroglandular density. FINDINGS: There is no evidence of suspicious mass, calcification, or architectural distortion to suggest malignancy. There has been no suspicious interval change. IMPRESSION: 1. No mammographic evidence of malignancy. Recommend routine screening mammography in one year. BI-RADS Category 2: Benign finding(s) Reviewed, dictated and finalized at location Q. IMPRESSION: 1. No mammographic evidence of malignancy. Recommend routine screening mammogra phy in one year. BI-RADS Category 2: Benign finding(s)
--- OUTSIDE RECORDS SUMMARY | 2024-12-12 17:09 | XMS_ITS | Clinical Summary ---
Author Organization [facility] Address [address] [place] [address] Phone Care Team Providers Care Wine Sales Representative Name Role Phone Ortega Tolliver MD Primary Care Provider Allergies Active Allergy Reactions Criticality Noted Date Comments Codeine Nausea and Vomiting Low 10/09/2012 Medications cholecalciferol, Vitamin D3, (VITAMIN D3) 1,000 unit Capsule Take 1,000 Caps by mouth daily. Active loratadine (CLARITIN) 10 mg tablet Take 1 Tab by mouth daily chief environmental commitment officer. 30 Tab 11 12/12/2013 Active rosuvastatin (CRESTOR) 20 mg tablet Take 0.5 Tablet (10 mg) by mouth daily at bedtime. 30 Tablet 2 12/02/2014 Active omeprazole (PRILOSEC) 20 mg Tablet, Delayed Release (E.C.) Take 1 Tablet (20 mg) by mouth daily. 30 Tablet 2 12/02/2014 Active lisinopril (PRINIVIL) 10 mg tablet Half tab po qd. 30 Tablet 2 12/02/2014 Active Active Problems Problem Noted Date Diagnosed Date HTN (hypertension) 10/09/2012 Chronic low back pain 10/09/2012 Overview (12/12/2013): Disk herniation, spinal stenosis; HLD (hyperlipidemia) 10/09/2012 Arthritis 10/09/2012 Esophageal spasm 10/09/2012 Family History Medical History Relation Name Comments Cancer Father Heart Disease Father Breast Cancer Maternal Cousin Arthritis-osteo Mother Heart Disease Mother Breast Cancer Paternal Grandmother 90's Ovarian Cancer Neg Hx Relation Name Status Comments Father Maternal Cousin Mother Paternal Grandmother Social History Tobacco Use Types Packs/Day Years Used Date Smoking Tobacco: Never Smokeless Tobacco: Never Alcohol Use Standard Drinks/Week Comments Yes 5 (1 standard drink = 0.6 oz pur e alcohol) Comments Unknown Sex and Gender Information Value Date Recorded Sex Assigned at Not on file 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 Gender Identity Not on file Sexual Orientation Not on file Occupation Industry Job Start Date Job End Date Not on file Not on file Not on file Not on file Last Filed Vital Signs Vital Sign Reading Time Taken Comments Blood Pressure 146/80 12/12/2013 9:36 AM CDT Sta nding Bp Pulse 79 12/12/2013 9:32 AM CDT Temperature 36.1 C (96.9 F) 12/12/2013 9:32 AM CDT Respiratory Rate 20 12/12/2013 9:32 AM CDT Oxygen Saturation 97% 12/12/2013 9:32 AM CDT Inhaled Oxygen Concentration - - Weight 93 kg (205 lb) 12/12/2013 9:32 AM CDT Height 165.1 cm (5' 5) 12/12/2013 9:32 AM CDT Body Mass Index 34.11 12/12/2013 9:32 AM CDT Plan of Treatment Health Maintenance Due Date Last Done Comments DTAP/TDAP/TD VACCINES (1 - Tdap) 1969 COLORECTAL SCREENING 1995 Colorectal Cancer Screening 1995 FIT-DNA Q 3 years 1995 FIT/FOBT Q 1 year 1995 Flex Sig/CT Colonography Q 5 years 1995 PNEUMOCOCCAL VACCINE 50+ YEA RS (1 of 1 - PCV) 2000 ZOSTER VACCINE (1 of 2) 2000 OSTEOPOROSIS SCREENING 2015 BREAST CANCER SCREENING 05/11/2019 05/11/19 19, 04/14/2017, 03/10/2016, Additional history exists INFLUENZA VACCINE (#1) 2024 RSV VACCINE (60+ or ) (1 - 1-dose 75+ series) 2025 Procedures Procedure Name Priority Date/Time Associated Diagnosis Comments MAMMO 3D MONI SCREEN BILAT W OR WO CAD Routine 05/10/2018 11:20 AM CDT Visit for screening mammogram from Last 3 Months or Most Recently Relevant to Health Maintenance Results * MAMMO SCRN BILAT 3D MONI W OR WO CAD (05/10/2018 11:20 AM CDT) Anatomical Region Laterality Modality Breast Bilateral Mammography 05/10/2018 11:2 0 AM CDT Impressions 05/11/2018 9:55 AM CDT IMPRESSION: No mammographic evidence of malignancy. RECOMMENDATIONS: Routine screening mammogram in one year. DICTATION LOCATION: [facility] 05/11/2018 9:55 AM CDT BILATERAL FULL-FIELD DIGITAL SCREENING MAMMOGRAM WITH CAD WITH 3D TOMOSYNTHESIS DATE: 05/10/2018 11:20 AM HISTORY: Routine screening. TECHNIQUE: Full-field digital craniocaudal and mediolateral oblique projections of both breasts were obtained. Low-dose full-field digital breast tomosynthesis examination was performed with 2D and 3D acquisitions. Examination is read in conjunction with computer aided detection. COMPARISON: December 2013 through March 2017. BREAST COMPOSITION: Scattered fibroglandular densities. FINDINGS: No suspicious mass, suspicious microcalcifications, or architectural distortion in either breast is identified. Since the prior study, there has been no significant interval change. The computer aided diagnosis detects no significant abnormality. OVERALL ASSESSMENT: BI-RADS Category 1 - Negative. Procedure Note Teodoro Pimentel MD - 05/11/2018 BILATERAL FULL-FIELD DIGITAL SCREENING MAMMOGRAM WITH CAD WITH 3D TOMOSYNTHESIS DATE: 05/10/2018 11:20 AM HISTORY: Routine screening. TECHNIQUE: Full-field digital craniocaudal and mediolateral oblique projections of both breasts were obtained. Low-dose full-field digital breast tomosynthesis examination was performed with 2D and 3D acquisitions. Examination is read in conjunction with computer aided detection. COMPARISON: December 2013 through March 2017. BREAST COMPOSITION: Scattered fibroglandular densities. FINDINGS: No suspicious mass, suspicious microcalcifications, or architectural distortion in either breast is identified. Since the prior study, there has been no significant interval change. The computer aided diagnosis detects no significant abnormality. OVERALL ASSESSMENT: BI-RADS Category 1 - Negative. IMPRESSION: No mammographic evidence of malignancy. RECOMMENDATIONS: Routine screening mammogram in one year. 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
--- OUTSIDE RECORDS SUMMARY | 2024-12-12 17:09 | XMS_ITS | Encounter Summary ---
Author Organization [facility] Address [address] [place] [address] Care Team Providers Care Dust Box Tender Name Role Phone Ortega Tolliver MD Primary Care Provider Reason for Visit * Reason Comments Medication Refill Encounter Details Date Type Department Care Team (Late st Contact Info) Description 12/17/2014 Refill [facility] [address] [address] Pop Sun MD [address] [place] [address] Social History Tobacco Use Types Packs/Day Years Used Date Smoking Tobacco: Never Smokeless Tobacco: Never Alcohol Use Standard Drinks/Week Comments Yes 5 (1 standard drink = 0.6 oz pur e alcohol) Comments Unknown Sex and Gender Information Value Date Recorded Sex Assigned at Not on file 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
--- OUTSIDE RECORDS SUMMARY | 2024-12-12 17:10 | XMS_ITS | Encounter Summary ---
Author Organization [facility] Address [address] [place] [address] Care Team Providers Care Earthmoving Labourer Name Role Phone Ortega Tolliver MD Primary Care Provider [phone] Reason for Visit * Reason Comments Medication Refill Encounter Details Date Type Department Care Team (Late st Contact Info) Description 09/08/2015 Refill [facility] [address] [address] Pop Sun MD [address] [place] [address] Social History Tobacco Use Types Packs/Day Years Used Date Smoking Tobacco: Never Smokeless Tobacco: Never Alcohol Use Standard Drinks/Week Comments Yes 5 (1 standard drink = 0.6 oz pur e alcohol) Comments Unknown Sex and Gender Information Value Date Recorded Sex Assigned at Not on file 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
== END 2024-12-12 14:55 | disposition home or self-care (01) ==
LOC: ANHFOHIMG 14:57
PROVIDERS: PCP Internal Medicine; Visit Provider Nurse Practitioner
DX: Z12.31 Encounter for screening mammogram for malignant neoplasm of breast (principal)
CPT/HCPCS: 77063; 77067